=== PATIENT | male | born 1975 | race African-American/Black ===

== ENCOUNTER → 2023-05-22 09:40 | Outpatient (BNVA) | payer OTHER, SELFPAY | PROVIDERS: PCP Nurse Practitioner Family; Visit Provider Internal Medicine ==

== ENCOUNTER 2023-05-22 10:19 | Outpatient (REF) | payer OTHER, SELFPAY ==
[2023-05-22 10:42] LABS: MANUAL DIFF FLAG NO
[2023-05-22 11:31] LABS: Appearance Urine Clear; Color Urine Yellow; Glucose Urine UA Negative (Negative); Leukocyte Esterase Urine Trace (Negative); Nitrite Urine Negative (Negative); PH 5.5 (5.0-9.0); UMIC TRIGGER UACC YES; Urine Blood Negative (Negative); Urine Ketones Negative (Negative); Urine Protein Negative (Neg-Trace)
[2023-05-22 11:40] LABS: Basophils Percent Auto 0.3 % (0-2); Eosinophils Absolute Auto 0.2 X10*3/uL (0.0-0.4); Eosinophils Percent Auto 3.1 % (0-4); Hematocrit 47.6 % (42.0-52.0); Hemoglobin 16.1 g/dl (14.0-18.0); Imm Gran Abs Auto 0.02 X10*3/uL (0.00-0.03); Imm Gran Pct Auto 0.3 % (0.0-0.4); Lymphocytes Absolute Auto 1.1 X10*3/uL (1.2-4.9); Lymphocytes Percent Auto 18.7 % (20-40); Mean Corpuscular HGB Conc 33.8 g/dl (31.0-36.0); Mean Corpuscular Hemoglobin 31.3 pg (27.0-33.0); Mean Corpuscular Volume 92.4 fL (80.0-98.0); Mean Platelet Volume 10.7 fL (9.4-12.4); Monocytes Absolute Auto 0.7 X10*3/uL (0.1-1.2); Monocytes Percent Auto 12.3 % (2-11); Neutrophils Absolute Auto 3.8 x10*3/uL (2.0-8.3); Neutrophils Percent Auto 65.3 % (45-73); Platelet Count 166 X10*3/uL (160-400); Red Blood Count 5.15 X10*6/uL (4.60-5.80); Red Cell Distribution Width 12.9 % (11.0-16.0); White Blood Count 5.8 X10*3/uL (4.8-10.8)
[2023-05-22 11:47] LABS: Bacteria Urine None Seen (None Seen); Hyaline Casts Urine 0-2 /LPF (0-2); Squamous Epithelial Cell Urine 0-2 /HPF (0-2); WBC Urine 0-5 /HPF (0-5)
[2023-05-22 12:16] LABS: Estimated Average Glucose 108 mg/dL; Hemoglobin A1c % 5.4 %
[2023-05-22 13:04] LABS: Ferritin 111 ng/mL (20-250)
[2023-05-22 13:07] LABS: Alanine Aminotransferase 21 U/L (0-40); Albumin Level 3.9 g/dL (3.5-5.0); Alkaline Phosphatase 89 U/L (39-117); Anion Gap 11 (12-20); Aspartate Amino Transferase 25 U/L (5-37); Bilirubin Total 0.9 mg/dL (0.0-1.0); Blood Urea Nitrogen 11 mg/dL (9-16); Calcium 9.3 mg/dL (8.4-10.2); Carbon Dioxide 26 mmol/L (22-29); Chloride 105 mmol/L (96-108); Cholesterol 186 mg/dL; Estimated Glomerular Filt Rate > 60; Glucose Random 82 mg/dL (60-115); HDL Cholesterol 28 mg/dL; Potassium 3.8 mmol/L (3.3-5.1); Sodium 138 mmol/L (135-145); Total Protein 7.3 g/dL (6.5-8.0); Triglycerides 414 mg/dL
[2023-05-22 13:22] LABS: ~HepC Num1 0.13 S/CO (0.00-0.79); ~Hepatitis C Antibody Nonreactive (Nonreactive)
[2023-05-22 13:23] LABS: HBc Num1 0.24 S/CO (0.00-0.79); HBsAGNum1 0.43 S/CO (0.00-0.99); Hepatitis B Core Antibody Nonreactive (Nonreactive); Hepatitis B Surface Antigen Negative (Negative); ~Hepatitis B Surface Antibody NONREACTIVE (Nonreactive)
[2023-05-22 13:28] LABS: TSH reflex Free T4 1.87 uIU/mL (0.32-4.0)
== END 2023-05-22 10:20 | disposition home or self-care (01) ==
LOC: HO.LAB 10:19
PROVIDERS: Internal Medicine; PCP Nurse Practitioner Family; Visit Provider Nurse Practitioner Family
DX: Z13.0 Encounter for screening for diseases of the blood and blood-forming organs and certain disorders involving the immune mechanism (principal); Z13.220 Encounter for screening for lipoid disorders; Z13.29 Encounter for screening for other suspected endocrine disorder; Z11.59 Encounter for screening for other viral diseases; I10 Essential (primary) hypertension; N50.82 Scrotal pain; K74.60 Unspecified cirrhosis of liver; E66.9 Obesity, unspecified; Z86.010 Personal history of colon polyps
CPT/HCPCS: 36415; 80053; 80061; 81001; 82728; 83036; 84443; 85025; 86704; 86706; 86803; 87340; 99202

== ENCOUNTER 2023-07-25 10:26 | Outpatient (AMB) | payer OTHER, SELFPAY ==
[2023-07-25 10:28] VITALS: BP 130/80; PULSE 83; O2SAT 97; BMI 51.7
--- NOTE | 2023-07-25 10:28 | MHC.PC.OV ---
Vital Signs 07/25/23 10:28 Height 6 ft 2.5 in Weight 408 lb BMI 51.7 BP 130/80 Blood Pressure Location Lt brachial Position Sitting Pulse 83 Pulse Source Pulse Oximeter Pulse Oximetry (%) 97 Oxygen Delivery Method Room Air Intake Visit Reasons: Annual PE Intake Note: Patient is here today for a physical. Spudder Required: No Billing Adjudicator: Not Required per policy Accompanied by: Self / Same As Patient Allergies egg [EGG] Allergy (Unknown, Verified 07/25/23 10:29) SWELLING NSAIDS (Non-Steroidal Anti-Inflamma [NSAIDS (NON-STEROIDAL ANTI-INFLAMMA] Allergy (Unknown, Verified 07/25/23 10:29) BLOOD IN STOOL Eggs Allergy (Unknown, Uncoded 05/22/23 09:56) anaphylaxis NSAIDS Allergy (Unknown, Uncoded 05/22/23 09:56) Unknown Tobacco use date assessed: 07/25/23 Dental Screening Dental Screen Date: 07/25/23 Did you have a dental visit in the last 12 months?: No Did you have a dental problem in the last 6 months where you did not have access to dental care?: No Was dental information given to patient?: No HPI HPI Comments History of Present Illness Details 48-year-old male past medical history significant for hypertension, hypercholesteremia and obesity. Patient last seen in January presents today for physical exam. Complete blood work done in April. Reviewed hypertriglyceridemia 414, repeat fasting labs ordered. Right knee pain and swelling for years, hx right knee sugery. Patient requesting referral to orthopedic. Referral entered and right knee xray ordered. Patient requesting urology referral to discuss vasectomy. Patient requesting referral to general surgery for umbilical hernia. Referral entered. Colonscopy: at age 31; removed 7 polyps and was supposed to have 5 year follow up and never went. Patient was seen by [facility] and is going to be set for colonoscopy screening. TD given January 2023 Eye exam: Last year. PFSH Medical History Hypercholesteremia Hypertension Scrotal pain Surgical History H/O right knee surgery History of esophagogastroduodenoscopy (EGD) Hx of cholecystectomy Hx of colonoscopy Family History (Updated 07/25/23 @ 10:31 by Rita Driver) Mother No problems noted. Father Hypertension Diabetes Myocardial infarction Sister Hypertension Diabetes Brother Diabetes Hypertension Maternal Aunt Colon cancer Maternal Aunt Colon cancer Social History (Updated 07/25/23 @ 10:37 by Rita Driver) Household Members: Spouse Housing: House Alcohol intake: former Patient Tobacco Use Status: Never used Tobacco e-Cigarette/Vaping Use: Never Used Second Hand Smoke Exposure: No Substance Use Type: Marijuana service: No Current occupational status: unemployed and disabled Cognitive needs: No Hearing needs: No Vision needs: Yes Questionnaire PHQ-9 Over the last 2 weeks, how often have you been bothered by any of the following problems? 1. Little interest or pleasure in doing things: not at all 2. Feeling down, depressed, or hopeless: several days 3. Trouble falling or staying asleep, or sleeping too much: nearly every day 4. Feeling tired or having little energy: nearly every day 5. Poor appetite or overeating: not at all 6. Feeling bad about yourself - or that you are a failure or have let yourself or your family down: several days 7. Trouble concentrating on things, such as reading the newspaper or watching television: nearly every day 8. Moving or speaking so slowly that other people could have noticed. Or the opposite - being so fidgety or restless that you have been moving around a lot more than usual: nearly every day 9. Thoughts that you would be better off or of hurting yourself in some way: not at all Total score: 14 Source: Developed by Drs. Simon Yun, Iris Levy, Julio Tom and colleagues, with an educational declan from [employer]. DEANN-7 AMB Questionnaire DEANN-7 Date DEANN - 7 assessed: 07/25/23 Feeling nervous, anxious, or on edge: 2 = More than half the days Not being able to stop or control worryin = Several days Worrying too much about different things: 1 = Several days Trouble relaxin = Nearly every day Being so restless that it is hard to sit still: 2 = More than half the days Becoming easily annoyed or irritable: 3 = Nearly every day Feeling afraid as if something awful might happen: 0 = Not at all Total DEANN-7 score (0-4 normal; 5-9 mild; 10-14 moderate; 15-21 severe): 12 Source: Developed by Drs. Simon Yun, Iris Levy, Julio Tom and colleagues, with an educational declan from [employer]. Review of Systems Const Denies chills, Denies fatigue, Denies fever(s) and Denies poor appetite Eyes Denies no additional complaints ENT Reports Normal hearing present Card Denies chest pain, Denies syncope, Denies rapid heart rate and Denies dyspnea Resp Denies cough and Denies dyspnea GI Denies change in stool character, Denies constipation, Denies diarrhea, Denies nausea and Denies vomiting Denies dysuria, Denies urinary frequency and Denies urinary urgency Neuro Reports Normal hearing present, Denies confusion and Denies syncope Psych Denies confusion Endo Denies fatigue Physical exam (Primary Care) Vital Signs: Last Vital Signs Pulse 83 07/25/23 10:28 BP 130/80 07/25/23 10:28 Pulse Ox 97 07/25/23 10:28 Oxygen Delivery Method Room Air 07/25/23 10:28 BMI result Body Mass Index 51.7 Tobacco/Smoking Status: Tobacco use Status Tobacco use date assessed 07/25/23 07/25/23 10:33 Patient Tobacco Use Status Never used Tobacco 07/25/23 10:37 e-Cigarette/Vaping Use Never Used 07/25/23 10:37 PHQ-9: PHQ-9 Score PHQ-9: Total score 14 07/25/23 11:38 Const General: No confusion Orientation/consciousness: No confusion HENMT Head: Yes normocephalic and Yes atraumatic Ears: external ears normal and TM's normal bilaterally General nose exam: Normal external nose present and Normal nasal mucous membranes and turbinates present Face and sinus: Yes normal facial exam and Yes sinuses nontender Mouth: moist mucous membranes Throat: Yes tonsils normal Eyes Conjunctivae: conjunctivae normal Sclerae: sclerae normal Pupils: Equal, round and reactive pupils present and Pupils normal by confrontation EOM: EOMs intact bilaterally Direct Ophthalmoscopy: normal light reflex Neck Neck: Yes no lymphadenopathy and Yes supple Thyroid: Thyroid normal Chest Chest palpation & inspection: normal inspection of the chest Resp Effort & Inspection: normal respiratory effort Auscultation: clear to auscultation bilaterally, no crackles, no rhonchi and no wheezes Cardio Rate: regular rate Rhythm: regular rhythm Peripheral pulses: radial pulses present GI Inspection: Yes normal to inspection Palpation (GI): Soft to palpation, nontender and No hepatosplenomegaly present Auscultation: normoactive bowel sounds Skin General skin exam: no rashes or lesions noted Neuro General: No confusion Cranial nerves: Yes Equal, round and reactive pupils present and Yes Normal hearing present Cognition (Neuro): normal cognition Gait exam (Neuro): Normal gait present Motor exam (neuro): 5/5 motor strength present throughout Deep tendon reflexes (DTR's): Right brachioradialis reflex intensity grade: 2+, Left brachioradialis reflex intensity grade: 2+, Right patellar reflex intensity grade: 2+ and Left patellar reflex intensity grade: 2+ Extrem General: No edema Assessment and Plan Assessment & Plan (1) Hypertension: Code(s): I10 - Essential (primary) hypertension Plan: Blood pressure goal less than 140/90. Follow low-salt and exercise. (2) Hypercholesteremia: Code(s): E78.00 - Pure hypercholesterolemia, unspecified Plan: Fasting lipid panel ordered. (3) Obesity: Code(s): E66.9 - Obesity, unspecified Plan: Recommended diet and exercise to reduce BMI. (4) Physical exam, annual: Code(s): Z00.00 - Encounter for general adult medical examination without abnormal findings Plan: (5) H/O right knee surgery: Code(s): Z98.890 - Other specified postprocedural states (6) Right knee pain: Code(s): M25.561 - Pain in right knee Plan: Can take Tylenol as needed for the pain. Right knee x-ray ordered and referral placed to orthopedic. (7) Umbilical hernia: Code(s): K42.9 - Umbilical hernia without obstruction or gangrene Plan: Referral placed to General surgery. Plan Follow-up in 3 months. Orders: Orders XR knee RT 2V Today M25.561 - Pain in right knee, Z98.890 - Other specified postprocedural states Comprehensive Jackson. Panel Fast Today I10 - Essential (primary) hypertension Lipid Panel Today Z13.220 - Encounter for screening for lipoid disorders Referrals Orthopedics Referral M25.561 - Pain in right knee, Z98.890 - Other specified postprocedural states General Surgery Referral K42.9 - Umbilical hernia without obstruction or gangrene Urology Referral Z30.2 - Encounter for sterilization Coding Level of Care Code Est Pt Prev Care 40-64y(38522) Diagnoses Hypertension I10 Hypercholesteremia E78.00 Obesity E66.9 Physical exam, annual Z00.00 H/O right knee surgery Z98.890 Right knee pain M25.561 Umbilical hernia K42.9
== END 2023-07-25 11:05 | disposition home or self-care (01) ==
PROVIDERS: PCP Nurse Practitioner Family; Visit Provider Nurse Practitioner Family
DX: Z00.00 Encounter for general adult medical examination without abnormal findings (principal); Z68.43 Body mass index [BMI] 50.0-59.9, adult; Z98.890 Other specified postprocedural states; E66.9 Obesity, unspecified; I10 Essential (primary) hypertension; E78.00 Pure hypercholesterolemia, unspecified; M25.561 Pain in right knee; K42.9 Umbilical hernia without obstruction or gangrene
CPT/HCPCS: 99396

== ENCOUNTER 2023-07-28 09:09 | Outpatient (AMB) | payer OTHER, SELFPAY ==
--- NOTE | 2023-07-28 09:15 | A.OFFVIS_ITS ---
Intake Vital Signs 07/28/23 09:22 Height 6 ft 2.5 in Weight 412 lb BMI 52.2 BP 163/99 H Blood Pressure Location Rt radial Position Sitting Pulse 59 Intake Visit Reasons: Umbilical hernia Intake Note: Patient referred for Umbilical hernia. C/o Lt abd hernia becoming painful after dinner. States pain is 10 out o 10 when it flares. R&D Lab Technician Required: No Accompanied by: Self / Same As Patient Allergies egg [EGG] Allergy (Unknown, Verified 07/28/23 09:17) SWELLING NSAIDS (Non-Steroidal Anti-Inflamma [NSAIDS (NON-STEROIDAL ANTI-INFLAMMA] Aller gy (Unknown, Verified 07/28/23 09:17) BLOOD IN STOOL Eggs Allergy (Unknown, Uncoded 07/28/23 09:17) anaphylaxis NSAIDS Allergy (Unknown, Uncoded 07/28/23 09:17) Unknown HPI HPI Comments History of Present Illness Details Patient presents with a many year history of a symptomatic umbilical hernia. He wishes to have this repaired. Otherwise patient is doing well. He is tolerating his diet. Having normal bowel habits. He did do very stress activities but this has been limited because of unrelated lower extremity issues. Patient is status post laparoscopic cholecystectomy and his hernia may be related to that prior surgery. PFSH Medical History Hypercholesteremia Hypertension Scrotal pain Surgical History H/O right knee surgery History of esophagogastroduodenoscopy (EGD) Hx of cholecystectomy Hx of colonoscopy Family History Mother No problems noted. Father Hypertension Diabetes Myocardial infarction Sister Hypertension Diabetes Brother Diabetes Hypertension Maternal Aunt Colon cancer Maternal Aunt Colon cancer Social History Household Members: Spouse Housing: House Alcohol intake: former Patient Tobacco Use Status: Never used Tobacco e-Cigarette/Vaping Use: Never Used Second Hand Smoke Exposure: No Substance Use Type: Marijuana service: No Current occupational status: unemployed and disabled Cognitive needs: No Hearing needs: No Vision needs: Yes Physical Exam Vital Signs: Last Vital Signs Pulse 59 07/28/23 09:22 BP 163/99 H 07/28/23 09:22 BMI result Body Mass Index 52.2 Chest Other: Chest sounds bilaterally, HS 1 in 2 GI Other: Very corpulent abdomen. Laparoscopic gallbladder scars. Umbilical her/incisional hernia approximately 3 cm in size. Irreducible. Assessment & Plan Assessment & Plan (1) Umbilical hernia: Code(s): K42.9 - Umbilical hernia without obstruction or gangrene Plan Risks, benefits, alternatives open umbilical hernia repair with mesh were reviewed with the patient and included but not limited to bleeding, infection, recurrence, numbness, pain, scarring, bowel injury and the patient wished to proceed. All questions were answered. Arrangements will be made for this. Coding Level of Care Code New Pt Level 5 (21955) Diagnoses Umbilical hernia K42.9
[2023-07-28 09:22] VITALS: BP 163/99; PULSE 59; BMI 52.2
== END 2023-07-28 09:27 | disposition home or self-care (01) ==
PROVIDERS: PCP Nurse Practitioner Family; Referring Provider Nurse Practitioner Family; Visit Provider Surgery
DX: K42.9 Umbilical hernia without obstruction or gangrene (principal)
CPT/HCPCS: 99204

== ENCOUNTER → 2023-07-28 09:09 | Outpatient (BNVA) | payer OTHER, SELFPAY | PROVIDERS: PCP Nurse Practitioner Family; Referring Provider Nurse Practitioner Family; Visit Provider Surgery ==

== ENCOUNTER 2023-08-10 12:31 | Outpatient (AMB) | payer OTHER, SELFPAY ==
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
== END 2023-08-10 13:44 | disposition home or self-care (01) ==
PROVIDERS: PCP Nurse Practitioner Family; Visit Provider Orthopaedic Surgery
DX: M25.561 Pain in right knee (principal)
CPT/HCPCS: 20610; 99204

== ENCOUNTER 2023-08-10 17:20 | Outpatient (REF) | payer OTHER, SELFPAY ==
--- NOTE | ~2023-08-10 | XR_ITS ---
EXAMINATION: XR KNEE, RIGHT CLINICAL INFORMATION: Pain in right knee COMPARISON: None available. TECHNIQUE: Three views of the right knee. FINDINGS: The bones are diffusely demineralized. Joint effusion present. Moderate degenerative changes with joint space narrowing and hypertrophic change in the lateral and patellofemoral compartments. Status post surgical fixation with lateral plate and multiple screws along the proximal aspect of the tibia. Hardware appears intact. Sclerotic focus projects along the medial lateral aspect of the proximal tibia. XR/XR knee RT 3V IMPRESSION: Joint effusion present. Moderate degenerative changes in the lateral and patellofemoral compartments. Status post surgical fixation with lateral plate and multiple screws along the proximal aspect of the tibia. Hardware appears intact. Sclerotic focus projects along the medial lateral aspect of the proximal tibia.
== END 2023-08-10 17:21 | disposition home or self-care (01) ==
LOC: HO.HOSX 17:20
PROVIDERS: Visit Provider Orthopaedic Surgery
DX: M25.561 Pain in right knee (principal)
CPT/HCPCS: 20610; 73562; J3301

== ENCOUNTER 2023-08-24 06:01 | Day surgery (SDC) | payer OTHER, SELFPAY ==
[2023-08-22 07:19] VITALS: BMI 52.4
--- NOTE | 2023-08-23 09:05 | MHC.SHP ---
Pre-Procedural Eval Section A Date of Service: 08/23/23 The patient is an INPATIENT: No Changes since office visit: No Cold of Flu in the past 2 weeks, No New Medical Problems, No Changes in Medication and No Patient answered all questions The History & Physical has been completed within 30 days and I have reviewed it.: Yes Section B Chief Complaint: Umbilical hernia without obstruction or gangrene Allergies: Allergies Allergy/AdvReac Type Severity Reaction Status Date / Time egg [EGG] Allergy Unknown SWELLING Verified 08/10/23 13:05 NSAIDS (Non-Steroidal Allergy Unknown BLOOD IN Verified 08/10/23 13:05 Anti-Inflamma STOOL [NSAIDS (NON-STEROIDAL ANTI-INFLAMMA] Eggs Allergy Unknown anaphylaxis Uncoded 08/10/23 13:05 Plan I have reviewed the history and physical and performed a pertinent physical examination on my patient. No changes have occurred unless specified. Time Spent With Patient Time: Total time managing care of this patient today ____ minutes.
[2023-08-24] VITALS (10 sets, daily range): BP systolic 115–157; BP diastolic 62–100; PULSE 54–72; RESP 13–18; TEMP 36.1–36.8; O2SAT 92–98
[2023-08-24] MEDS: Lactated Ringers 1,000 ML 100 ML IVCONT (06:44)
--- NOTE | 2023-08-24 07:20 | HO.ANESPROP2 ---
Documented by User: Patricia Juan NP 08/23/23 08:57 HPI - Anesthesia Eval Consult details Narrative: 48yo M for Open Umbilical Hernia w/mesh PMFSH Active Problems Active Problems: All Active Problems (Updated 07/25/23 @ 10:54 by JAYLEN Moise) Umbilical hernia (Acute) Right knee pain (Acute) Obesity (Acute) Personal history of colonic polyps (Acute) Encounter for hepatitis C screening test for low risk patient (Acute) Scrotal pain (Acute) H/O right knee surgery (Acute) Hx of cholecystectomy (Acute) Hypercholesteremia (Acute) Hypertension (Acute) Past Medical History Medical History (Updated 08/24/23 @ 06:22 by Mile Cano RN) Marijuana smoker Scrotal pain Hypercholesteremia Hypertension Family History Family History Mother No problems noted. Father Hypertension Diabetes Myocardial infarction Sister Hypertension Diabetes Brother Diabetes Hypertension Maternal Aunt Colon cancer Maternal Aunt Colon cancer Surgical History Surgical History History of esophagogastroduodenoscopy (EGD) Hx of colonoscopy H/O right knee surgery Hx of cholecystectomy Social History Social History Household Members: Spouse Housing: House Alcohol intake: former Patient Tobacco Use Status: Never used Tobacco e-Cigarette/Vaping Use: Never Used Second Hand Smoke Exposure: No Substance Use Type: Marijuana Are you DNR?: No Advance Directives: No Advance Directives Information Provided: Yes Recently lost weight without trying: No Nutrition Risks: No Nutritional Risk service: No Current occupational status: unemployed and disabled Cognitive needs: No Hearing needs: No Vision needs: Yes Meds Allergies Allergy/AdvReac Type Severity Reaction Status Date / Time egg [EGG] Allergy Unknown SWELLING Verified 08/10/23 13:05 NSAIDS (Non-Steroidal Allergy Unknown BLOOD IN Verified 08/10/23 13:05 Anti-Inflamma STOOL [NSAIDS (NON-STEROIDAL ANTI-INFLAMMA] Eggs Allergy Unknown anaphylaxis Uncoded 08/10/23 13:05 Exam Exam Date and Time: August 23, 2023 0856 Height,Weight and Vital Signs: Height 6 ft 2 in Weight 185.066 kg Pertinent Lab Results Pertinent Lab Results: Laboratory Tests 05/22/23 10:39 WBC 5.8 Hgb 16.1 Hct 47.6 Plt Count 166 Sodium 138 Potassium 3.8 Chloride 105 Carbon Dioxide 26 BUN 11 Creatinine 0.86 Assessment and Plan Assessment Anesthesia Assessment: Chart Reviewed Documented by User: Karlene Manjarrez, 08/24/23 08:42 PMFSH Past Medical History Medical History (Updated 08/24/23 @ 06:22 by Mile Cano RN) Marijuana smoker Scrotal pain Hypercholesteremia Hypertension Family History Family History Mother No problems noted. Father Hypertension Diabetes Myocardial infarction Sister Hypertension Diabetes Brother Diabetes Hypertension Maternal Aunt Colon cancer Maternal Aunt Colon cancer Family history of problems with anesthesia: No Surgical History Surgical History History of esophagogastroduodenoscopy (EGD) Hx of colonoscopy H/O right knee surgery Hx of cholecystectomy History of Problems with Anesthesia: No Social History Social History Household Members: Spouse Housing: House Alcohol intake: former Patient Tobacco Use Status: Never used Tobacco e-Cigarette/Vaping Use: Never Used Second Hand Smoke Exposure: No Substance Use Type: Marijuana Are you DNR?: No Advance Directives: No Advance Directives Information Provided: Yes Recently lost weight without trying: No Nutrition Risks: No Nutritional Risk service: No Current occupational status: unemployed and disabled Cognitive needs: No Hearing needs: No Vision needs: Yes Meds Allergies Allergy/AdvReac Type Severity Reaction Status Date / Time egg [EGG] Allergy Unknown SWELLING Verified 08/10/23 13:05 NSAIDS (Non-Steroidal Allergy Unknown BLOOD IN Verified 08/10/23 13:05 Anti-Inflamma STOOL [NSAIDS (NON-STEROIDAL ANTI-INFLAMMA] Eggs Allergy Unknown anaphylaxis Uncoded 08/10/23 13:05 Exam Exam Date and Time: August 24, 2023 0715 Height,Weight and Vital Signs: Height 6 ft 2 in Weight 185.066 kg Vital Signs Temperature 98.3 F 08/24/23 06:06 Pulse Rate 56 08/24/23 06:06 Respiratory Rate 18 08/24/23 06:06 Blood Pressure 144/100 H 08/24/23 06:06 Pulse Oximetry 98 08/24/23 06:06 Oxygen Delivery Method Room Air 08/24/23 06:06 Temperature 98.3 F 08/24/23 06:06 Pulse Rate 56 08/24/23 06:06 Respiratory Rate 18 08/24/23 06:06 Blood Pressure 145/86 H 08/24/23 06:24 Pulse Oximetry 98 08/24/23 06:06 Oxygen Delivery Method Room Air 08/24/23 06:06 Airway Mallampati Class: II TM Dist: >3cm Neck ROM: Full Loose/Missing/Broken Teeth: Yes (broken front teeth) Heart: S1S2 Lungs: CTAB Assessment and Plan Assessment Anesthesia Assessment: Anesthesia Plan Discussed and Chart Reviewed Final Anesthetic Review Family History of Problems with Anesthesia: No History of Problems with Anesthesia: No NPO: Yes ASA Class: III Final Preanesthetic Review: No Changes in Pt Med Stat, Meds/Allgs Chart Reviewed, Consent Obtained/Reviewed and Anes Risks/Benef Reviewed Patient Risk: Intermediate Procedure Risk: Low Anesthetic Plan Anesthetic Plan: GA and Agree w/ Assess. and Plan Disposition: Standard PACU
--- NOTE | 2023-08-24 08:29 | W.PM.OPN ---
Operative Note Operative Note Date of Service: 08/24/23 Narrative: Preoperative diagnosis: [] Large incarcerated umbilical/incisional hernia Postop diagnosis: [] Same Procedure [] open repair incarcerated umbilical/incisional hernia with Bard mesh Surgeon: [] [facility] Prosthetics Technician: [] Hossein Type of Anesthesia: [] General Indication for surgery: [] Large incarcerated umbilical/incisional hernia with defect measuring approximately 4 cm with very large hernia sac with incarcerated omental contents. Very corpulent abdomen Findings: [] Patient brought to the operating room, placed on operative table in a supine position, after adequate level of general anesthesia was induced, the patient's abdomen was prepped and draped in usual sterile fashion. Using an infraumbilical incision from a prior scar from previous surgery over this site, this carried down through skin, subcutaneous tissue, where a massive hernia sac was dissected away from the umbilicus and dissected down to the fascia. Sac was opened were incarcerated omental contents were amputated using Bovie along with the hernia sac. Specimen sent to pathology. Fascia margins were circumferentially cleared and a Bard mesh was placed in this defect. The superficial layer of the mesh was circumferentially sutured to the surrounding fascia using interrupted 0 Ethibond suture. At completion the procedure, mesh was in good position with no tension and no gaps. The wound Was irrigated, secured hemostasis, and closed in the following manner; posterior aspect of the umbilicus was tacked to the wound floor using interrupted 3-0 Vicryl suture. Skin was closed using interrupted inverted dermal 3-0 Vicryl sutures followed by Steri-Strips and sterile dressings. Wound was infiltrated 0.5% Marcaine at completion. Sponge, needle, and instrument counts reported correct. Patient tolerated the procedure well and emerged anesthesia in stable condition. EBL minimal
== END 2023-08-24 11:19 | disposition home or self-care (01) ==
PROVIDERS: PCP Nurse Practitioner Family; Visit Provider Surgery
PROC: (CPT 49594; principal; 2023-08-24 07:30)
DX: K42.0 Umbilical hernia with obstruction, without gangrene (principal); I10 Essential (primary) hypertension; E78.00 Pure hypercholesterolemia, unspecified; N50.82 Scrotal pain; Z88.8 Allergy status to other drugs, medicaments and biological substances; Z90.49 Acquired absence of other specified parts of digestive tract; F12.90 Cannabis use, unspecified, uncomplicated
CPT/HCPCS: 49594; 88302; C1781; J0690; J1100; J1170; J2250; J2405; J3010

== ENCOUNTER → 2023-08-24 06:01 | Outpatient (BNV) | payer OTHER, SELFPAY | PROVIDERS: PCP Nurse Practitioner Family; Visit Provider Surgery | DX: K42.9 Umbilical hernia without obstruction or gangrene (principal) | CPT/HCPCS: 49594 ==

== ENCOUNTER 2023-09-11 10:04 | Outpatient (AMB) | payer OTHER, SELFPAY ==
[2023-09-11 10:09] VITALS: BP 133/93; PULSE 65
--- NOTE | 2023-09-11 10:09 | MHC.OFFVIS ---
Intake Vital Signs 09/11/23 10:09 Weight 394 lb BP 133/93 H Blood Pressure Location Rt brachial Position Sitting Pulse 65 Intake Visit Reasons: S/P open umbilical hernia w/mesh Intake Note: Patient here s/p open umbilical hernia w/mesh. Reports healing well. Never needed to take rx pain meds. Ups Driver Required: No Accompanied by: Self / Same As Patient Allergies egg [EGG] Allergy (Unknown, Verified 09/11/23 10:10) SWELLING NSAIDS (Non-Steroidal Anti-Inflamma [NSAIDS (NON-STEROIDAL ANTI-INFLAMMA] Allergy (Unknown, Verified 09/11/23 10:10) BLOOD IN STOOL Eggs Allergy (Unknown, Uncoded 09/11/23 10:10) anaphylaxis HPI HPI Comments History of Present Illness Details Patient presents for follow-up. He has minimal incisional discomfort. He has time diet. Having normal bowel habits. He is increasing his activity level. [facility] [place] Medical History Marijuana smoker Scrotal pain Hypercholesteremia Hypertension Surgical History History of umbilical hernia repair History of esophagogastroduodenoscopy (EGD) Hx of colonoscopy H/O right knee surgery Hx of cholecystectomy (08/24/23) Family History Mother No problems noted. Father Hypertension Diabetes Myocardial infarction Sister Hypertension Diabetes Brother Diabetes Hypertension Maternal Aunt Colon cancer Maternal Aunt Colon cancer Social History Household Members: Spouse Housing: House Alcohol intake: former Patient Tobacco Use Status: Never used Tobacco e-Cigarette/Vaping Use: Never Used Second Hand Smoke Exposure: No Substance Use Type: Marijuana service: No Current occupational status: unemployed and disabled Cognitive needs: No Hearing needs: No Vision needs: Yes Physical Exam Vital Signs: Last Vital Signs Pulse 65 09/11/23 10:09 BP 133/93 H 09/11/23 10:09 GI Other: Abdomen soft. Wound clean dry and intact. Assessment & Plan Assessment & Plan (1) Umbilical hernia: Code(s): K42.9 - Umbilical hernia without obstruction or gangrene (2) Personal history of colonic polyps: Code(s): Z86.010 - Personal history of colonic polyps Plan From my perspective, patient has been given local instructions, should avoid stress activities next 4-5 weeks, follow up p.r.n.. Incidentally, patient is due for colonoscopy, and arrangements will be made with GI for this. Coding Level of Care Code Global (18066) Diagnoses Umbilical hernia K42.9 Personal history of colonic polyps Z86.010
== END 2023-09-11 10:31 | disposition home or self-care (01) ==
PROVIDERS: PCP Nurse Practitioner Family; Visit Provider Surgery
DX: K42.9 Umbilical hernia without obstruction or gangrene (principal); Z86.010 Personal history of colon polyps
CPT/HCPCS: 99212

== ENCOUNTER → 2023-09-11 10:04 | Outpatient (BNVA) | payer OTHER, SELFPAY | PROVIDERS: PCP Nurse Practitioner Family; Visit Provider Surgery | DX: K42.9 Umbilical hernia without obstruction or gangrene (principal); Z86.010 Personal history of colon polyps | CPT/HCPCS: 99212 ==

== ENCOUNTER 2023-09-26 08:19 | Outpatient (AMB) | payer OTHER, SELFPAY ==
--- NOTE | 2023-09-26 08:23 | A.OFFVIS_ITS ---
Intake Vital Signs 09/26/23 08:25 Height 6 ft 3 in Weight 398 lb BMI 49.7 BP 152/90 H Blood Pressure Location Lt brachial Position Sitting Pulse 58 Intake Visit Reasons: Colonoscopy Screening Intake Note: Patient 2nd pre colonoscopy screening. Patient cc: abdominal bloating, and between diarrhea and constipation. Denies any other GI issues. Investor Relations Associate Required: No Accompanied by: Self / Same As Patient Allergies egg [EGG] Allergy (Unknown, Verified 09/26/23 08:22) SWELLING NSAIDS (Non-Steroidal Anti-Inflamma [NSAIDS (NON-STEROIDAL ANTI-INFLAMMA] Allergy (Unknown, Verified 09/26/23 08:22) BLOOD IN STOOL Eggs Allergy (Unknown, Uncoded 09/11/23 10:10) anaphylaxis Medication List - Last Reconciled 09/26/23 by Janice Gallegos PA-C bisacodyl (Dulcolax (bisacodyl)) 20 mg (4 x 5 mg) PO ONCE 1 day polyethylene glycol 3350 (Miralax) 238 grams PO ONCE PRN 1 day HPI HPI Comments History of Present Illness Details A 48 y/o male personal history of colon polyps referred for screening screening colonoscopy 1 colo@ age 31- 7-polyps He has no GI complaints He has pretty much always had a alternating stool pattern- He has made multiple dietary modifications Appetite is good He has no respiratory or cardiac issues Does not smoke or drink He takes no medications He has no nausea, vomiting, hematemesis, abdominal pain, hematochezia fever or chills PFSH Medical History (Updated 09/26/23 @ 08:38 by Janice Gallegos PA-C) Marijuana smoker Scrotal pain Hypercholesteremia Hypertension Surgical History History of umbilical hernia repair History of esophagogastroduodenoscopy (EGD) Hx of colonoscopy H/O right knee surgery Hx of cholecystectomy (08/24/23) Family History Mother No problems noted. Father Hypertension Diabetes Myocardial infarction Sister Hypertension Diabetes Brother Diabetes Hypertension Maternal Aunt Colon cancer Maternal Aunt Colon cancer Social History Household Members: Spouse Housing: House Alcohol intake: former Patient Tobacco Use Status: Never used Tobacco e-Cigarette/Vaping Use: Never Used Second Hand Smoke Exposure: No Substance Use Type: Marijuana service: No Current occupational status: unemployed and disabled Cognitive needs: No Hearing needs: No Vision needs: Yes Review of Systems Const Details: All systems reviewed negative All systems reviewed & are unremarkable except as noted in HPI and below Card Denies chest pain and Denies dyspnea Resp Denies dyspnea GI Denies abdominal pain and Denies hematochezia Physical Exam Const General: cooperative, healthy appearing, comfortable and no acute distress Nutritional Appearance: overweight Orientation/consciousness: patient oriented x3 Limitations: no limitations Eyes Sclerae: sclerae normal Resp Effort & Inspection: normal respiratory effort and able to speak in complete sentences Auscultation: clear to auscultation bilaterally, no rales, no rhonchi and no wheezes Cardio Rate: regular rate Rhythm: regular rhythm Heart sounds: S1 normal heart sound present and S2 normal heart sound present GI Inspection: Yes normal to inspection Palpation (GI): Soft to palpation and nontender Auscultation: normal bowel sounds Skin General skin exam: no rashes or lesions noted Neuro General: patient oriented x3 Extrem General: Yes full ROM Psych Appearance: grossly normal and well kempt Mental Status: mental status grossly normal Speech and movement: Normal speech and movement present and Clear speech present Affect: normal affect Attitude: cooperative Thought process: Normal thought process present Thought content: Normal thought content present Assessment & Plan Assessment & Plan (1) Hx of colonoscopy: Comment: Reportedly 7 polyps at age 31 he had never had follow-up colonoscopy Code(s): Z98.890 - Other specified postprocedural states (2) History of adenomatous polyp of colon: Code(s): Z86.010 - Personal history of colonic polyps Plan Polyp surveillance colonoscopy MiraLax Gatorade prep Bariatric bed Orders: Orders Colonoscopy - GI Use Only Today Z86.010 - Personal history of colonic polyps, Z98.890 - Other specified postprocedural states Medications: New bisacodyl (Dulcolax (bisacodyl)) Day before procedure, prep day Take 4 tablets by mouth upon awakening followed by large glass of water 20 mg (4 x 5 mg) PO ONCE 4 tabs 0RF colonoscopy prep 1 day Z12.11 - Encounter for screening for malignant neoplasm of colon polyethylene glycol 3350 (Miralax) Take as directed by mouth the day before your procedure. 238 grams PO ONCE PRN 238 grams 0RF laxative effect 1 day Patient Instructions: Polyp surveillance colonoscopy MiraLax Gatorade Need for escort Coding Level of Care Code New Pt Level 3 (89247) Diagnoses Hx of colonoscopy Z98.890 History of adenomatous polyp of colon Z86.010 Time Spent (min) 25
[2023-09-26 08:25] VITALS: BP 152/90; PULSE 58; BMI 49.7
== END 2023-09-26 09:26 | disposition home or self-care (01) ==
PROVIDERS: PCP Nurse Practitioner Family; Visit Provider Physician Assistant
DX: Z98.890 Other specified postprocedural states (principal); Z86.010 Personal history of colon polyps
CPT/HCPCS: 99203

== ENCOUNTER → 2023-09-26 08:19 | Outpatient (BNVA) | payer OTHER, SELFPAY | PROVIDERS: PCP Nurse Practitioner Family; Visit Provider Physician Assistant | DX: Z98.890 Other specified postprocedural states (principal); Z86.010 Personal history of colon polyps | CPT/HCPCS: 99202 ==

== ENCOUNTER 2025-06-03 14:56 | Outpatient (AMB) | payer OTHER, SELFPAY ==
--- NOTE | 2025-06-03 14:59 | MHC.PC.OV ---
Vital Signs 06/03/25 15:01 Height 6 ft 2.5 in Weight 445 lb 8.867 oz BMI 56.4 BP 142/94 H Blood Pressure Location Lt brachial Position Sitting Pulse 86 Pulse Source Pulse Oximeter Temp 97.3 F Temp Source Temporal Artery Scan Pulse Oximetry (%) 96 Oxygen Delivery Method Room Air Intake Visit Reasons: annual exam/ rt leg pain Manager Requirements Required: No Accompanied by: Self / Same As Patient Allergies egg (EGG) Allergy (Unknown, Verified 06/03/25 15:08) SWELLING NSAIDS (Non-Steroidal Anti-Inflamma (NSAIDS (NON-STEROIDAL ANTI-INFLAMMA) Allergy (Unknown, Verified 06/03/25 15:08) BLOOD IN STOOL Eggs Allergy (Unknown, Uncoded 06/03/25 15:08) anaphylaxis Medication List - Last Reconciled 06/03/25 by Marlon Sandhu PA-C bisacodyl (Dulcolax (bisacodyl)) 20 mg (4 x 5 mg) PO ONCE 1 day polyethylene glycol 3350 (Miralax) 238 grams PO ONCE PRN 1 day Tobacco use date assessed: 06/03/25 Dental Screening Dental Screen Date: 06/03/25 Did you have a dental visit in the last 12 months?: No Did you have a dental problem in the last 6 months where you did not have access to dental care?: No Was dental information given to patient?: Yes HPI annual exam/ rt leg pain HPI Details Patient is a 49-year-old male here today for an annual physical. This is the 1st time I am meeting this 49-year-old male with a past medical history significant for class 3 obesity, hypertension and hyperlipidemia.. Lower extremity swelling: The patient reports experiencing swelling in his leg, particularly in the evenings, which has been persistent for several months. He has a history of bolts and screws in the leg and received a cortisone injection previously, which was followed by increased swelling. The swelling has been significant enough to prevent him from wearing his work shoes, necessitating the use of Crocs. The patient has a family history of thrombosis on both maternal and paternal sides, with his father having experienced severe complications leading to amputation. He denies taking any regular medications but occasionally uses [id number] analgesics, which exacerbate his hernia symptoms. The patient reports a history of obstructive sleep apnea, previously confirmed by a sleep study, and expresses interest in weight management interventions. He has ceased smoking and alcohol consumption, which he associates with weight gain. The patient has a history of hernia repair with mesh placement and reports variable bowel habits, which he manages with dietary modifications. .. [facility] Medical History (Updated 06/04/25 @ 07:28 by Marlon Sandhu PA-C) Marijuana smoker Scrotal pain Hypercholesteremia Hypertension Surgical History History of umbilical hernia repair History of esophagogastroduodenoscopy (EGD) Hx of colonoscopy H/O right knee surgery Hx of cholecystectomy (08/24/23) Family History Mother No problems noted. Father Hypertension Diabetes Myocardial infarction Sister Hypertension Diabetes Brother Diabetes Hypertension Maternal Aunt Colon cancer Maternal Aunt Colon cancer Social History Household Members: Spouse Housing: House Alcohol intake: former Patient Tobacco Use Status: Never used Tobacco e-Cigarette/Vaping Use: Never Used Second Hand Smoke Exposure: No Substance Use Type: Marijuana service: No Current occupational status: unemployed and disabled Cognitive needs: No Hearing needs: No Vision needs: Yes Questionnaire PHQ-9 Over the last 2 weeks, how often have you been bothered by any of the following problems? 1. Little interest or pleasure in doing things: not at all 2. Feeling down, depressed, or hopeless: not at all 3. Trouble falling or staying asleep, or sleeping too much: not at all 4. Feeling tired or having little energy: not at all 5. Poor appetite or overeating: not at all 6. Feeling bad about yourself - or that you are a failure or have let yourself or your family down: not at all 7. Trouble concentrating on things, such as reading the newspaper or watching television: not at all 8. Moving or speaking so slowly that other people could have noticed. Or the opposite - being so fidgety or restless that you have been moving around a lot more than usual: not at all 9. Thoughts that you would be better off or of hurting yourself in some way: not at all Total score: 0 Depression Screening Interpretation: Negative Depression Screening Done: Yes 42048 - PHQ-9 Billing: Yes Source: Developed by Drs. Simon Yun, Iris Levy, Julio Tom and colleagues, with an educational declan from [employer]. Thrive Questionnaire Date Thrive assessed: 06/03/25 I am a: Patient What is your living situation today?: I have a steady place to live Within the past 12 months, did the food you bought not last and you didn't have the money to get more?: Never true Within the past 12 months, did you worry whether your food would run out before you got money to buy more?: Never true Do you have trouble paying for medicines?: No Do you have trouble getting transportation to medical appointments?: No Do you have trouble paying your heating and electricity bill?: No Do you have trouble taking care of your child, family member or friend?: No Do you have trouble with day-to-day activities such as bathing, preparing meals, shopping, managing finances, etc.?: No Are you currently unemployed and looking for a job?: No Are you interested in more education?: No Please select the resources that you would like help with: None Currently or been in a relationship where the following occur: No concerns reported THRIVE Score: 0 AUDIT C Alcohol Use Questionnaire (AUDIT-C) 1. How often do you have a drink containing alcohol?: Never 3. How often do you have six or more drinks on one occasion?: Never Total Score: 0 DEANN-7 AMB Questionnaire DEANN-7 Date DEANN - 7 assessed: 06/03/25 Feeling nervous, anxious, or on edge: 0 = Not at all Not being able to stop or control worryin = Not at all Worrying too much about different things: 0 = Not at all Trouble relaxin = Not at all Being so restless that it is hard to sit still: 0 = Not at all Becoming easily annoyed or irritable: 0 = Not at all Feeling afraid as if something awful might happen: 0 = Not at all Total DEANN-7 score (0-4 normal; 5-9 mild; 10-14 moderate; 15-21 severe): 0 Source: Developed by Iris JohnsonW. Cam, Julio Tom and colleagues, with an educational declan from [employer]. DEANN-7 Assessment Billing DEANN-7 Assessment Tool: DEANN-7 Assessment 45960 Review of Systems Const Denies body aches, Denies chills, Denies excessive sweating, Denies fatigue, Denies fever(s) and Denies headache(s) Eyes Denies blurry vision ENT Denies dysphagia, Denies vertigo, Denies dizziness, Denies headache(s), Denies hearing loss and Denies tinnitus Card Denies chest pain, Denies chest pain with activity, Denies syncope, Denies irregular heart rhythm and Denies dyspnea Resp Denies chest congestion, Denies cough, Denies hemoptysis, Denies dyspnea and Denies wheezing GI Denies abdominal pain, Denies melena, Denies hematochezia, Denies coffee ground emesis, Denies dysphagia, Denies diarrhea, Denies nausea and Denies vomiting Denies difficulty urinating, Denies dysuria, Denies urinary frequency, Denies urinary hesitancy and Denies urinary urgency Musc Denies arthralgias, Denies limited range of motion, Denies muscle cramps and Denies muscle weakness Skin/Breast Denies rash and Denies skin ulcer Neuro Denies Abnormal speech present, Denies confusion, Denies vertigo, Denies dizziness, Denies syncope, Denies headache(s), Denies memory loss and Denies seizure-like activity Psych Denies anxiety, Denies confusion, Denies depression, Denies memory loss, Denies panic attacks and Denies paranoia Endo Denies excessive sweating, Denies fatigue, Denies flushing, Denies polydipsia and Denies polyuria Aller/Immun Denies wheezing Physical exam (Primary Care) Vital Signs: Last Vital Signs Temp 97.3 F 06/03/25 15:01 Pulse 86 06/03/25 15:01 BP 142/94 H 06/03/25 15:01 Pulse Ox 96 06/03/25 15:01 Oxygen Delivery Method Room Air 06/03/25 15:01 BMI result Body Mass Index 56.4 BMI Assessment/Plan discussion: High BMI High, discussed plan: lifestyle, weight reduction, dietary and physical activity Tobacco/Smoking Status: Tobacco use Status Tobacco use date assessed 06/03/25 06/03/25 15:01 Patient Tobacco Use Status Never used Tobacco 06/03/25 15:01 e-Cigarette/Vaping Use Never Used 06/03/25 15:01 PHQ-9: PHQ-9 Score PHQ-9: Total score 0 06/03/25 15:13 Depression Screening Interpretation: Negative Thrive Assessment: Date of Thrive Assessment Date Thrive assessed 06/03/25 06/03/25 15:01 Currently or been in a relationship where the following occur: No concerns reported Const Other: Morbidly obese General: cooperative, comfortable, no acute distress, alert and awake; No confusion Orientation/consciousness: oriented to person, oriented to place, patient oriented x3 and No confusion HENMT Head: Yes normocephalic Ears: external ears normal and TM's normal bilaterally Face and sinus: No sinus tenderness Mouth: Normal oral and palatal mucosa present and tongue normal Teeth and gingiva: dentition normal and gingiva normal Throat: Yes posterior oropharynx normal, Yes tonsils normal and Yes uvula midline Eyes Conjunctivae: conjunctivae normal Sclerae: sclerae normal Pupils: Equal, round and reactive pupils present EOM: EOMs intact bilaterally Direct Ophthalmoscopy: No no photophobia Neck Neck: Yes no lymphadenopathy, No tender and Yes no JVD Thyroid: Thyroid normal Carotids: no bruits Chest Chest palpation & inspection: no tenderness Resp Effort & Inspection: normal respiratory effort, no audible wheezes, not labored and no stridor Auscultation: no crackles, no rales, no rhonchi and no wheezes Cardio Jugular venous distension: no JVD Rate: regular rate, not bradycardic and not tachycardic Rhythm: regular rhythm Bruits: no carotid bruits Peripheral pulses: Peripheral pulses 2+ throughout GI Inspection: Yes normal to inspection, No abdominal wall ecchymosis and No visible herniation Palpation (GI): Soft to palpation, nontender, no guarding, not rigid and No hepatosplenomegaly present Auscultation: normoactive bowel sounds General: Yes no CVA tenderness Back/Spine/Pelvis Back: no CVA tenderness and No back tenderness Cervical Spine: cervical ROM normal Thoracic/Lumbar Spine: thoracic and lumbar spine normal to inspection, straight leg raise negative bilaterally, No thoraco-lumbar ROM limited and No lumbar spinal tenderness Skin Lesions: no lesions Rashes: no rashes Wounds: no wounds Neuro General: oriented to person, oriented to place, patient oriented x3, CN's II-XI intact bilaterally and No confusion Cranial nerves: Yes Equal, round and reactive pupils present and Yes Normal accommodation reflex present Cognition (Neuro): normal cognition Speech: No Abnormal speech present Gait exam (Neuro): Normal gait present Motor exam (neuro): 5/5 motor strength present throughout Extrem Other: RIGHT LOWER EXTREMITY LARGER IN DIAMETER COMPARED TO LEFT LOWER EXTREMITY, NOTED HYPERPIGMENTED SKIN OVER THE MEDIAL LOWER ASPECT OF THE RIGHT LEG. Right upper extremity: full ROM; no cyanosis Left upper extremity: full ROM; no cyanosis Right lower extremity: no edema Left lower extremity: no edema Psych Appearance: grossly normal Mental Status: mental status grossly normal Affect: normal affect Attitude: cooperative Thought process: Normal thought process present Coding Level of Care Code Est Pt Prev Care 40-64y(05333) Diagnoses Annual physical exam Z00.00 Right leg swelling M79.89 Class 3 obesity E66.813 KAMILLA (obstructive sleep apnea) G47.33 Primary hypertension I10 Hypertension type: primary hypertension Hypercholesteremia E78.00 Additional Codes DEANN-7 Assessment Billing - DEANN-7 Assessment Tool: DEANN-7 Assessment 47532 ([id number]) PHQ-9 - 94139 - PHQ-9 Billing: Yes ([id number]) Assessment & Plan Assessment & Plan (1) Annual physical exam: Code(s): Z00.00 - Encounter for general adult medical examination without abnormal findings Category: Medical Plan: As per HPI (2) Right leg swelling: Code(s): M79.89 - Other specified soft tissue disorders Category: Medical Plan: Patient with chronic right lower extremity swelling, will send for ultrasound to evaluate for DVT as he does have a family history of blood clots. Otherwise will supply patient with a paper Rx for compression sock to use on his right lower extremity. Will supply patient with a few weeks of Lasix to help dry out fluid. Will consider vascular evaluation for lymphedema in the right lower extremity. (3) Class 3 obesity: Code(s): E66.813 - Obesity, class 3 Category: Medical Plan: Patient has had a hard time losing weight. He reports since he has stopped drinking alcohol he has gained weight. He works a sedentary job as a cook. He is willing to try injectable medication GLP 1 to help him lose weight. (4) KAMILLA (obstructive sleep apnea): Code(s): G47.33 - Obstructive sleep apnea (adult) (pediatric) Category: Medical Plan: Patient does report a personal history of obstructive sleep apnea and was using a CPAP machine for a short amount of time. He does admit to daytime somnolence, increase fatigue and reports of apneic episodes at night. He is willing to get obstructive sleep apnea. (5) Hypertension: Code(s): I10 - Essential (primary) hypertension Category: Medical Qualifiers: Hypertension type: primary hypertension Qualified Code(s): I10 - Essential (primary) hypertension Plan: Patient's blood pressure elevated today in office. He would like to work on lifestyle and dietary modifications before starting blood pressure medications. Goal blood pressure to be below 140/90 (6) Hypercholesteremia: Code(s): E78.00 - Pure hypercholesterolemia, unspecified Category: Medical Plan: Patient's most recent lipid panel done in 2022 showing elevated triglycerides at 414. Will recheck fasting lipid panel and consider starting statin therapy Orders: Orders US venous duplex LE RT 06/03/25 M79.89 - Other specified soft tissue disorders Lipid Panel 06/03/25 E78.00 - Pure hypercholesterolemia, unspecified Microalbumin, Random (w Creat) 06/03/25 I10 - Essential (primary) hypertension Comprehensive [place]. Panel Fast 06/03/25 I10 - Essential (primary) hypertension Complete Blood Count no Diff 06/03/25 I10 - Essential (primary) hypertension Prostate Specific Antigen Scr 06/03/25 E78.00 - Pure hypercholesterolemia, unspecified, Z12.5 - Encounter for screening for malignant neoplasm of prostate RT home sleep study 06/03/25 G47.33 - Obstructive sleep apnea (adult) (pediatric) Referrals Bariatric Surgery Referral E66.813 - Obesity, class 3 Medications: New furosemide 20 mg PO DAILY 14 tabs 0RF 14 days M. - Other specified soft tissue disorders compr.stocking,knee,long,x-lrg Need for 10-15 millimeter mercury compression 2 ea 0RF M79.89 - Other specified soft tissue disorders tirzepatide (weight loss) (Zepbound) for 4 weeks 2.5 mg (0.5 mL) subcut QWEEK 4 weeks 2 mL 0RF E66.813 - Obesity, class 3, G47.33 - Obstructive sleep apnea (adult) (pediatric) tirzepatide (weight loss) (Zepbound) for 4 weeks 2.5 mg (0.5 mL) subcut QWEEK 2 mL 0RF 4 weeks E66.813 - Obesity, class 3, G47.33 - Obstructive sleep apnea (adult) (pediatric)
[2025-06-03 15:01] VITALS: BP 142/94; PULSE 86; TEMP 36.3; O2SAT 96; BMI 56.4
== END 2025-06-03 15:35 | disposition home or self-care (01) ==
LOC: HO.HMCH 14:56
PROVIDERS: PCP Physician Assistant; Visit Provider Physician Assistant
DX: Z00.00 Encounter for general adult medical examination without abnormal findings (principal); M79.89 Other specified soft tissue disorders; E66.813 Obesity, class 3; Z68.43 Body mass index [BMI] 50.0-59.9, adult; G47.33 Obstructive sleep apnea (adult) (pediatric); I10 Essential (primary) hypertension; E78.00 Pure hypercholesterolemia, unspecified

== ENCOUNTER → 2025-06-03 14:56 | Outpatient (BNVA) | payer OTHER, SELFPAY | PROVIDERS: PCP Physician Assistant; Visit Provider Physician Assistant | DX: Z00.00 Encounter for general adult medical examination without abnormal findings (principal); E66.813 Obesity, class 3; I10 Essential (primary) hypertension; E78.00 Pure hypercholesterolemia, unspecified; M79.89 Other specified soft tissue disorders; G47.33 Obstructive sleep apnea (adult) (pediatric); Z68.43 Body mass index [BMI] 50.0-59.9, adult | CPT/HCPCS: 96127; 99396 ==

== ENCOUNTER 2025-06-03 15:51 | Outpatient (REF) | payer OTHER, SELFPAY ==
--- NOTE | ~2025-06-03 | US_ITS ---
EXAMINATION: US TRIPLEX LOWER EXTREMITY, RIGHT CLINICAL INFORMATION: Right lower extremity edema. COMPARISON: None available. TECHNIQUE: Color-flow triplex imaging with spectral analysis and compression Doppler were performed on the right lower extremity. FINDINGS: Respiratory variation, normal compression and augmented flow are noted throughout the right lower extremity. The visualized common femoral vein, superficial femoral vein, profunda femoral vein, popliteal vein and midcalf venous segments show no evidence of deep venous thrombosis. The peroneal vein and posterior tibial vein could not be seen with certainty due to edema. There is no Melchor's cyst. US/US venous duplex LE RT IMPRESSION: No evidence of deep venous thrombosis involving the right lower extremity. Electronically signed by: Duke Marr MD 06/03/2025 04:28 PM EDT
== END 2025-06-03 15:52 | disposition home or self-care (01) ==
LOC: HO.US 15:51
PROVIDERS: PCP Physician Assistant; Visit Provider Physician Assistant
DX: M79.89 Other specified soft tissue disorders (principal); G47.33 Obstructive sleep apnea (adult) (pediatric)
CPT/HCPCS: 93971

== ENCOUNTER → 2025-06-03 15:58 | Outpatient (BNV) | payer OTHER, SELFPAY | PROVIDERS: PCP Physician Assistant; Visit Provider Radiology Diagnostic Radiology | DX: R22.41 Localized swelling, mass and lump, right lower limb (principal) | CPT/HCPCS: 93971 ==

== ENCOUNTER 2025-06-09 07:43 | Outpatient (REF) | payer OTHER, SELFPAY ==
[2025-06-09 08:14] LABS: Hematocrit 46.1 % (42.0-52.0); Hemoglobin 15.4 g/dl (14.0-18.0); Mean Corpuscular HGB Conc 33.4 g/dl (31.0-36.0); Mean Corpuscular Hemoglobin 30.9 pg (27.0-33.0); Mean Corpuscular Volume 92.4 fL (80.0-98.0); NRBC Abs Auto 0.000 X10*3/uL (0.0-0.012); NRBC Pct Auto 0.0 /100WBC (0.0-0.2); Platelet Count 161 X10*3/uL (160-400); Red Blood Count 4.99 X10*6/uL (4.60-5.80); White Blood Count 4.5 X10*3/uL (4.8-10.8)
[2025-06-09 08:41] LABS: Alanine Aminotransferase 37 U/L (0-40); Albumin Level 3.9 g/dL (3.5-5.0); Alkaline Phosphatase 84 U/L (39-117); Anion Gap 8 (12-20); Aspartate Amino Transferase 35 U/L (5-37); Blood Urea Nitrogen 15 mg/dL (9-16); Calcium 8.5 mg/dL (8.4-10.2); Carbon Dioxide 27 mmol/L (22-29); Chloride 109 mmol/L (96-108); Cholesterol 190 mg/dL (<200); Estimated Glomerular Filt Rate > 60; HDL Cholesterol 35 mg/dL (>40); Potassium 4.1 mmol/L (3.3-5.1); Sodium 140 mmol/L (135-145); Total Protein 7.0 g/dL (6.5-8.0); Triglycerides 329 mg/dL (<150)
[2025-06-09 11:27] LABS: Microalbum/Creatinine Ratio Ur 17.3 ug/mg cr (<30)
== END 2025-06-09 07:44 | disposition home or self-care (01) ==
LOC: HO.LAB 07:43
PROVIDERS: PCP Physician Assistant; Visit Provider Physician Assistant
DX: Z12.5 Encounter for screening for malignant neoplasm of prostate (principal); I10 Essential (primary) hypertension; E78.00 Pure hypercholesterolemia, unspecified
CPT/HCPCS: 36415; 80053; 80061; 82043; 82570; 84153; 85027

== ENCOUNTER 2025-08-04 13:42 | Outpatient (AMB) | payer OTHER, SELFPAY ==
--- NOTE | 2025-08-04 13:52 | MHC.PC.OV ---
Vital Signs 08/04/25 13:53 Height 6 ft 2.5 in Weight 433 lb 2 oz BMI 54.9 BP 136/78 Blood Pressure Location Lt brachial Position Sitting Pulse 74 Pulse Source Pulse Oximeter Temp 97.3 F Temp Source Temporal Artery Scan Pulse Oximetry (%) 92 Oxygen Delivery Method Room Air Intake Visit Reasons: weight check Intake Note: Patient is here to follow up on Weight check. Shoes Hand Sewer Required: No Bonding Molder: Not Required per policy Accompanied by: Self / Same As Patient Allergies egg (EGG) Allergy (Unknown, Verified 08/04/25 14:03) SWELLING NSAIDS (Non-Steroidal Anti-Inflamma (NSAIDS (NON-STEROIDAL ANTI-INFLAMMA) Allergy (Unknown, Verified 08/04/25 14:03) BLOOD IN STOOL Eggs Allergy (Unknown, Uncoded 08/04/25 14:03) anaphylaxis Medication List - Last Reconciled 08/04/25 by Marlon Sandhu PA-C bisacodyl (Dulcolax (bisacodyl)) 20 mg (4 x 5 mg) PO ONCE 1 day compr.stocking,knee,long,x-lrg Need for 10-15 millimeter mercury compression furosemide 20 mg PO DAILY 14 days Held on 07/14/25. Instructions: Doctor's Order polyethylene glycol 3350 (Miralax) 238 grams PO ONCE PRN 1 day Tobacco use date assessed: 08/04/25 Dental Screening Dental Screen Date: 06/03/25 HPI weight check HPI Details The patient is a 50-year-old male presenting with a follow-up for weight management and evaluation of multiple health concerns including hypertension, hyperglycemia, and respiratory symptoms. The patient has experienced weight loss, reducing from 445 pounds to 433 pounds, without significant changes in lifestyle or diet. 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 The patient has a history of hypertension, with recent blood pressure readings showing improvement from 142/94 mmHg to 136/78 mmHg. Hyperglycemia was noted with a fasting blood sugar of 128 mg/dL, indicating a diabetic range. The patient is scheduled for further evaluation with an A1c test. The patient has hypertriglyceridemia, with levels previously at 414 mg/dL, now reduced to 329 mg/dL. Lifestyle modifications have contributed to this improvement, though levels remain above the normal range of 150 mg/dL. The patient reports left hand tendinitis, characterized by locking and swelling, particularly affecting his dominant hand. He has tried various treatments, including anti-inflammatory medications and therapy, but has declined cortisone injections due to previous adverse effects. The patient has a history of smoking for 30 years, having quit four years ago. He reports respiratory symptoms, including crackles and wheezes, and is being evaluated for COPD. A chest x-ray and pulmonary function test have been ordered to assess lung function. The patient has a history of colon polyps, with seven polyps removed at age 31. He has been advised to undergo a colonoscopy due to the potential for precancerous changes. [facility] Medical History (Updated 08/04/25 @ 14:25 by Marlon Sandhu PA-C) Marijuana smoker Scrotal pain Hypercholesteremia Hypertension Surgical History History of umbilical hernia repair History of esophagogastroduodenoscopy (EGD) Hx of colonoscopy H/O right knee surgery Hx of cholecystectomy (08/24/23) Family History Mother No problems noted. Father Hypertension Diabetes Myocardial infarction Sister Hypertension Diabetes Brother Diabetes Hypertension Maternal Aunt Colon cancer Maternal Aunt Colon cancer Social History Household Members: Spouse Housing: House Alcohol intake: former Patient Tobacco Use Status: Never used Tobacco e-Cigarette/Vaping Use: Never Used Second Hand Smoke Exposure: No Substance Use Type: Marijuana service: No Current occupational status: unemployed and disabled Cognitive needs: No Hearing needs: No Vision needs: Yes Questionnaire Thrive Questionnaire Date Thrive assessed: 07/28/25 I am a: Patient What is your living situation today?: I have a steady place to live Within the past 12 months, did the food you bought not last and you didn't have the money to get more?: I choose not to answer this question Within the past 12 months, did you worry whether your food would run out before you got money to buy more?: I choose not to answer this question Do you have trouble paying for medicines?: No Do you have trouble getting transportation to medical appointments?: No Do you have trouble paying your heating and electricity bill?: I choose not to answer this question Do you have trouble taking care of your child, family member or friend?: No Do you have trouble with day-to-day activities such as bathing, preparing meals, shopping, managing finances, etc.?: I choose not to answer this question Are you currently unemployed and looking for a job?: Yes Please select the resources that you would like help with: None THRIVE Score: 0 DEANN-7 AMB Questionnaire DEANN-7 Date DEANN - 7 assessed: 06/03/25 Source: Developed by Drs. Simon Yun, Iris Levy, Julio Tom and colleagues, with an educational declan from [employer]. Review of Systems Const Denies headache(s) Eyes Denies loss of vision ENT Denies vertigo, Denies dizziness, Denies headache(s) and Denies sore throat Card Denies chest pain, Denies leg edema and Denies lightheadedness Resp Reports cough, Denies hemoptysis and Reports wheezing GI Denies abdominal pain, Denies melena, Denies constipation, Denies diarrhea and Denies vomiting Denies dysuria, Denies urinary frequency and Denies urinary urgency Musc Denies arthralgias, Denies joint swelling, Denies numbness and Denies tingling Neuro Denies Abnormal speech present, Denies behavioral changes, Denies vertigo, Denies dizziness, Denies headache(s), Denies loss of vision, Denies memory loss, Denies numbness and Denies tingling Psych Denies anxiety, Denies behavioral changes, Denies depression, Denies memory loss and Denies panic attacks Edouard/Lymph Denies easy bleeding and Denies easy bruising Aller/Immun Reports wheezing Physical exam (Primary Care) Vital Signs: Last Vital Signs Temp 97.3 F 08/04/25 13:53 Pulse 74 08/04/25 13:53 BP 136/78 08/04/25 13:53 Pulse Ox 92 08/04/25 13:53 Oxygen Delivery Method Room Air 08/04/25 13:53 BMI result Body Mass Index 54.9 BMI Assessment/Plan discussion: High BMI High, discussed plan: lifestyle, weight reduction, dietary and physical activity Tobacco/Smoking Status: Tobacco use Status Tobacco use date assessed 08/04/25 08/04/25 13:58 Patient Tobacco Use Status Never used Tobacco 08/04/25 13:58 e-Cigarette/Vaping Use Never Used 08/04/25 13:58 Thrive Assessment: Date of Thrive Assessment Date Thrive assessed 07/28/25 08/04/25 13:58 Const Other: Obese General: healthy appearing, no acute distress, alert and awake Nutritional Appearance: well nourished Orientation/consciousness: oriented to person, oriented to place and oriented to time HENMT Ears: TM's normal bilaterally General nose exam: Normal nasal mucous membranes and turbinates present Eyes Conjunctivae: conjunctivae normal Sclerae: sclerae normal Pupils: Equal, round and reactive pupils present Neck Neck: Yes no lymphadenopathy and Yes no JVD Thyroid: Thyroid normal Carotids: no bruits Resp Other: BILATERAL WHEEZE AND RALES Effort & Inspection: normal respiratory effort and not tachypneic Auscultation: no crackles, rales, no rhonchi and wheezes Cardio Rate: regular rate Rhythm: regular rhythm Heart sounds: no murmurs and normal S1 and S2 GI Palpation (GI): Soft to palpation, nontender, no hepatomegaly and no splenomegaly Auscultation: normal bowel sounds Skin General skin exam: no rashes or lesions noted and dry skin Neuro General: oriented to person, oriented to place and oriented to time Cranial nerves: Yes Equal, round and reactive pupils present Speech: No Abnormal speech present Gait exam (Neuro): Normal gait present Motor exam (neuro): no tremor noted Extrem Right upper extremity: full ROM Left upper extremity: full ROM Right lower extremity: full ROM; no edema Left lower extremity: full ROM; no edema Psych Mental Status: mental status grossly normal Speech and movement: Normal speech and movement present Affect: normal affect Attitude: cooperative Thought process: Normal thought process present Coding Level of Care Code Est Pt Level 4 (70877) Diagnoses Right leg swelling M79.89 Class 3 obesity E66.813 KAMILLA (obstructive sleep apnea) G47.33 Primary hypertension I10 Hypertension type: primary hypertension Hypercholesteremia E78.00 Elevated fasting blood sugar R73.01 Hx of colonoscopy Z98.890 Left wrist tendinitis M77.8 Subacute cough R05.2 Cough type: subacute Former smoker Z87.891 Simple chronic bronchitis J41.0 COPD type: chronic bronchitis Chronic bronchitis type: simple Assessment & Plan Assessment & Plan (1) Right leg swelling: Code(s): M79.89 - Other specified soft tissue disorders Category: Medical Plan: Patient with chronic right lower extremity swelling, will send for ultrasound to evaluate for DVT as he does have a family history of blood clots. Has vascular evaluation tomorrow. 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 (2) Class 3 obesity: Code(s): E66.813 - Obesity, class 3 Category: Medical Plan: Has lost 10 lb since last office visit. Patient has had a hard time losing weight. He is willing to try injectable medication GLP 1 to help him lose weight. (3) KAMILLA (obstructive sleep apnea): Code(s): G47.33 - Obstructive sleep apnea (adult) (pediatric) Category: Medical Plan: Patient does report a personal history of obstructive sleep apnea and was using a CPAP machine for a short amount of time. He does admit to daytime somnolence, increase fatigue and reports of apneic episodes at night. He is willing to get obstructive sleep apnea. (4) Hypertension: Code(s): I10 - Essential (primary) hypertension Category: Medical Qualifiers: Hypertension type: primary hypertension Qualified Code(s): I10 - Essential (primary) hypertension Plan: Patient's blood pressure elevated today in office. He would like to work on lifestyle and dietary modifications before starting blood pressure medications. Goal blood pressure to be below 140/90 (5) Hypercholesteremia: Code(s): E78.00 - Pure hypercholesterolemia, unspecified Category: Medical Plan: Patient's most recent lipid panel done in 2022 showing elevated triglycerides at 414. Most recent lipid panel showing much improved triglycerides though still borderline high. He will continue working on dietary modifications. (6) Elevated fasting blood sugar: Code(s): R73.01 - Impaired fasting glucose Category: Medical Plan: Noted elevated fasting blood sugar 128, will check an A1c to evaluate for type 2 diabetes. (7) Hx of colonoscopy: Comment: Reportedly 7 polyps at age 31 he had never had follow-up colonoscopy Code(s): Z98.890 - Other specified postprocedural states Category: Surgical Plan: Patient promises to call gastroenterology for repeat colonoscopy. (8) Left wrist tendinitis: Code(s): M77.8 - Other enthesopathies, not elsewhere classified Category: Medical Plan: The patient reports tendinitis in the left hand, with treatment options including anti-inflammatory medications and occupational therapy. Cortisone injections have been declined due to previous adverse reactions. (9) Cough: Code(s): R05.9 - Cough, unspecified Category: Medical Qualifiers: Cough type: subacute Qualified Code(s): R05.2 - Subacute cough Plan: The patient is being evaluated for COPD, with a chest x-ray and pulmonary function test ordered. An inhaler has been prescribed to manage respiratory symptoms, and further assessment will guide treatment. (10) Former smoker: Code(s): Z87.891 - Personal history of nicotine dependence Category: Social Hx Plan: Former smoker, quit smoking 4 years ago. Has recently noted wheeze and chest congestion. Will send for chest x-ray to evaluate for pulmonary infiltrate (11) COPD (chronic obstructive pulmonary disease): Code(s): J44.9 - Chronic obstructive pulmonary disease, unspecified Category: Medical Qualifiers: COPD type: chronic bronchitis Chronic bronchitis type: simple Qualified Code(s): J41.0 - Simple chronic bronchitis Plan: As above, concerns here for COPD due to his long smoking history. Will supply patient with an albuterol inhaler for wheeze and shortness of breath. Orders: Orders PFT pulmonary function test Today J44.9 - Chronic obstructive pulmonary disease, unspecified, R05.9 - Cough, unspecified, Z87.891 - Personal history of nicotine dependence Comprehensive D Lo. Panel Fast Today E78.00 - Pure hypercholesterolemia, unspecified XR chest 2V Today R05.9 - Cough, unspecified Hemoglobin A1c Today R73.01 - Impaired fasting glucose Lipid Panel Today E78.00 - Pure hypercholesterolemia, unspecified Complete Blood Count no Diff Today E78.00 - Pure hypercholesterolemia, unspecified Medications: New albuterol sulfate 90 mcg/actuation (Ventolin HFA) 1 inh inhalation QID 8.5 grams 2RF 30 days J44.9 - Chronic obstructive pulmonary disease, unspecified diclofenac sodium 1% apply to single elbow, wrist or hand; for hand includes palm/fingers/back of hand 2 grams topical QID 100 grams 0RF 30 days M77.8 - Other enthesopathies, not elsewhere classified
[2025-08-04 13:53] VITALS: BP 136/78; PULSE 74; TEMP 36.3; O2SAT 92; BMI 54.9
--- OUTSIDE RECORDS SUMMARY | 2025-08-04 15:57 | XMS_ITS | Clinical Summary ---
Author Organization [facility] Address [address] [place] [id number] Phone Care Team Providers Care Can Closing Machine Operator Name Role Phone Unavailable Primary Care Provider Unavailabl e Allergies Active Allergy Reactions Criticality Noted Date Comments Ibuprofen 04/25/2023 Social History Tobacco Use Types Packs/Day Years Used Date Smoking Tobacco: Former Cigarettes Smokeless Tobacco: Never Tobacco Cessation:Counseling Given: Not Answered Alcohol Use Standard Drinks/Week Comments Not Currently 0 (1 standard drink = 0.6 oz pur e alcohol) Education Answer Date Recorded Are you interested in more education? Not on jana e 04/25/2023 Are you concerned about learning? Not on file 04/25/2023 No 04/25/2023 No 04/25/2023 Digital Access Answer Date Recorded No 04/25/2023 No 04/25/2023 Reliable internet access at home? Not on file 04/25/2023 Device with a working camera? Not on file Intimate Partner Violence Answer Date R ecorded Are you denied basic needs s uch as food, clothing, or medical care? No 04/25/2023 In the past 12 months have y ou been in a relationship with a person who hurts, threatens, or tries to control you? No 04/25/2023 Are you denied basic needs s uch as food, clothing, or medical care? No 04/25/2023 In the past 12 months have y ou been in a relationship with a person who hurts, threatens, or tries to control you? No 04/25/2023 Sex and Gender Information Value Date Recorded Sex Assigned at Not on file Legal Sex Male 6:36 PM EDT Gender Identity Not on file Sexual Orientation Not on file Last Filed Vital Signs Vital Sign Reading Time Taken Comments Blood Pressure 157/105 04/25/2023 7:04 PM EDT Pulse 75 04/25/2023 7:04 PM EDT Temperature 36.6 C (97.9 F) 04/25/2023 7:04 PM EDT Respiratory Rate 18 04/25/2023 7:04 PM EDT Oxygen Saturation 97% 04/25/2023 7:04 PM EDT Inhaled Oxygen Concentration - - Weight 184.6 kg (407 lb) 04/25/2023 7:04 PM EDT Height - - Body Mass Index - - Plan of Treatment Health Maintenance Due Date Last Done Comments Adult Td,Tdap Booster 1977 LIPID PANEL 1977 DEPRESSION SCREENING 1989 SMOKING Hx and SMOKELESS TOB ACCO SCREENING 1990 HEPATITIS C SCREENING 1995 HIV ONE-TIME SCREENING (18-6 5 YEARS) 1995 COLOGUARD 2022 COLONOSCOPY 2022 COLORECTAL CANCER SCREENING 2022 FIT TEST 2022 FOBT 2022 SIGMOIDOSCOPY 2022 VIRTUAL COLONOSCOPY 2022 INFLUENZA VACCINE (#1) 2025 COVID-19 VACCINE ( - 2023-2 5 season) 2025 HEPATITIS A VACCINES Aged Out No long er eligible based on patient's age to complete this topic HIB VACCINES Aged Out No longer eligi ble based on patient's age to complete this topic MENINGOCOCCAL VACCINES (ACWY) Aged Out No longer eligible based on patient's age to complete this topic MENINGOCOCCAL VACCINES (B) Aged Out N o longer eligible based on patient's age to complete this topic PNEUMOCOCCAL VACCINES (0-49 years) Aged Out No longer eligible based on patient's age to complete this topic Medical Devices Not on file Insurance [facility] Additional Source Comments The information contained in this document represents components of the legal health record. It is not the complete legal health record.[facility]
== END 2025-08-04 14:27 | disposition home or self-care (01) ==
PROVIDERS: PCP Physician Assistant; Visit Provider Physician Assistant
DX: J41.0 Simple chronic bronchitis (principal); Z87.891 Personal history of nicotine dependence; E66.813 Obesity, class 3; Z68.43 Body mass index [BMI] 50.0-59.9, adult; M79.89 Other specified soft tissue disorders; G47.33 Obstructive sleep apnea (adult) (pediatric); I10 Essential (primary) hypertension; E78.00 Pure hypercholesterolemia, unspecified; R73.01 Impaired fasting glucose; Z98.890 Other specified postprocedural states; M77.8 Other enthesopathies, not elsewhere classified

== ENCOUNTER → 2025-08-04 13:42 | Outpatient (BNVA) | payer OTHER, SELFPAY | PROVIDERS: PCP Physician Assistant; Visit Provider Physician Assistant | DX: I10 Essential (primary) hypertension (principal); R73.9 Hyperglycemia, unspecified; E78.1 Pure hyperglyceridemia; M77.8 Other enthesopathies, not elsewhere classified; Z87.891 Personal history of nicotine dependence; M79.89 Other specified soft tissue disorders; E66.813 Obesity, class 3; G47.33 Obstructive sleep apnea (adult) (pediatric); R73.01 Impaired fasting glucose; E78.00 Pure hypercholesterolemia, unspecified; J41.0 Simple chronic bronchitis; Z86.0100 Personal history of colon polyps, unspecified | CPT/HCPCS: 99212 ==

== ENCOUNTER 2025-08-11 07:43 | Outpatient (REF) | payer OTHER, SELFPAY ==
--- NOTE | ~2025-08-11 | XR_ITS ---
EXAMINATION: XR CHEST 2 VIEWS HISTORY: R05.9 - Cough, unspecified COMPARISON: Comparison is made with the prior examination dated 06/05/2019. FINDINGS: PA and lateral views of the chest are submitted. The lungs are expanded and clear. There is no pleural effusion, pneumothorax, or pulmonary vascular congestion. The heart is normal in size. There is mild degenerative disc disease of the spine. XR/XR chest 2V IMPRESSION: No acute cardiopulmonary abnormality. Electronically signed by: Simon Olivares MD 08/11/2025 08:08 AM EDT
--- OUTSIDE RECORDS SUMMARY | 2025-08-11 07:47 | XMS_ITS | Clinical Summary ---
Author Organization [facility] Address [address] [place] [phone] Phone Care Team Providers Care System Administrator Name Role Phone Unavailable Primary Care Provider [...] topic Medical Devices Not on file Insurance [facility] Additional Source Comments The information contained in this document represents components of the legal health record. It is not the complete legal health record.[facility]
[2025-08-11 08:50] LABS: Hematocrit 46.1 % (42.0-52.0); Hemoglobin 15.7 g/dl (14.0-18.0); Mean Corpuscular HGB Conc 34.1 g/dl (31.0-36.0); Mean Corpuscular Hemoglobin 31.0 pg (27.0-33.0); Mean Corpuscular Volume 91.1 fL (80.0-98.0); NRBC Abs Auto 0.000 X10*3/uL (0.0-0.012); NRBC Pct Auto 0.0 /100WBC (0.0-0.2); Platelet Count 207 X10*3/uL (160-400); Red Blood Count 5.06 X10*6/uL (4.60-5.80); White Blood Count 5.3 X10*3/uL (4.8-10.8)
[2025-08-11 09:28] LABS: Alanine Aminotransferase 36 U/L (0-40); Albumin Level 4.0 g/dL (3.5-5.0); Alkaline Phosphatase 102 U/L (39-117); Anion Gap 10 (12-20); Aspartate Amino Transferase 36 U/L (5-37); Blood Urea Nitrogen 12 mg/dL (9-16); Calcium 8.5 mg/dL (8.4-10.2); Carbon Dioxide 27 mmol/L (22-29); Chloride 107 mmol/L (96-108); Cholesterol 179 mg/dL (<200); Estimated Glomerular Filt Rate > 60; HDL Cholesterol 30 mg/dL (>40); Potassium 4.2 mmol/L (3.3-5.1); Sodium 140 mmol/L (135-145); Total Protein 7.4 g/dL (6.5-8.0); Triglycerides 316 mg/dL (<150)
[2025-08-11 09:37] LABS: Hemoglobin A1C 216.0810 umol/L; Total Hemoglobin (HGBA1C) 4093.6298 umol/L
== END 2025-08-11 07:44 | disposition home or self-care (01) ==
LOC: HO.LAB 07:43
PROVIDERS: Visit Provider Physician Assistant
DX: R73.01 Impaired fasting glucose (principal); R05.9 Cough, unspecified; E78.00 Pure hypercholesterolemia, unspecified
CPT/HCPCS: 36415; 71046; 80053; 80061; 83036; 85027

== ENCOUNTER → 2025-08-11 07:48 | Outpatient (BNV) | payer OTHER, SELFPAY | PROVIDERS: Visit Provider Radiology Diagnostic Radiology | DX: R05.9 Cough, unspecified (principal) | CPT/HCPCS: 71046 ==

== ENCOUNTER 2025-08-27 08:01 | Outpatient (AMB) | payer OTHER, SELFPAY ==
--- NOTE | 2025-08-27 08:03 | A.OFFPC_ITS ---
Vital Signs 08/27/25 08:05 Height 6 ft 2.5 in Weight 435 lb BMI 55.1 BP 124/90 H Blood Pressure Location Lt brachial Position Sitting Pulse 70 Pulse Source Pulse Oximeter Temp 97.1 F Temp Source Temporal Artery Scan Pulse Oximetry (%) 94 Oxygen Delivery Method Room Air Intake Visit Reasons: Problem with his Leg Intake Note: Patient is here to follow up on Problem with right leg. Rn Or Lvn Required: No Embossed Or Impressed Lettering Painter: Not Required per policy Accompanied by: Self / Same As Patient Allergies egg (EGG) Allergy (Unknown, Verified 08/27/25 08:11) SWELLING NSAIDS (Non-Steroidal Anti-Inflamma (NSAIDS (NON-STEROIDAL ANTI-INFLAMMA) Allergy (Unknown, Verified 08/27/25 08:11) BLOOD IN STOOL Eggs Allergy (Unknown, Uncoded 08/27/25 08:11) anaphylaxis Medication List - Last Reconciled 08/27/25 by Marlon Sandhu PA-C albuterol sulfate 90 mcg/actuation (Ventolin HFA) 1 inh inhalation QID 30 days bisacodyl (Dulcolax (bisacodyl)) 20 mg (4 x 5 mg) PO ONCE 1 day compr.stocking,knee,long,x-lrg Need for 10-15 millimeter mercury compression diclofenac sodium 1% 2 grams topical QID 30 days furosemide 20 mg PO DAILY 14 days Held on 07/14/25. Instructions: Doctor's Order metformin 500 mg PO BID 30 days polyethylene glycol 3350 (Miralax) 238 grams PO ONCE PRN 1 day Tobacco use date assessed: 08/27/25 Dental Screening Dental Screen Date: 06/03/25 HPI Problem with his Leg HPI Details The patient is a 50-year-old male presenting for a follow-up visit. Patient has a past medical history significant for class 3 obesity, type 2 diabetes, hyperlipidemia and lower extremity lymphedema The patient has a history of hypertension, with recent blood pressure readings showing improvement from 142/94 mmHg to 136/78 mmHg. DMII: Was found to have new onset type 2 diabetes in July 2025. He was started on metformin though has not started this medication .. Lower extremity lymphedema: Patient reports he has an upcoming appointment with vascular, continues to have lower extremity bilateral lymphedema worse on the right side with hemosiderin staining. Did have an ultrasound of his lower right leg which did not show vascular issue or DVT. Hypertriglyceridemia: The patient has hypertriglyceridemia, with levels previously at 414 mg/dL, now reduced to 329 mg/dL. Lifestyle modifications have contributed to this improvement, though levels remain above the normal range of 150 mg/dL. Former smoker: The patient has a history of smoking for 30 years, having quit four years ago. He reports respiratory symptoms, including crackles and wheezes, and is being evaluated for COPD. HE has a pulmonary function test have been ordered to assess lung function. [facility] Medical History Marijuana smoker Scrotal pain Hypercholesteremia Hypertension Surgical History History of umbilical hernia repair History of esophagogastroduodenoscopy (EGD) Hx of colonoscopy H/O right knee surgery Hx of cholecystectomy (08/24/23) Family History Mother No problems noted. Father Hypertension Diabetes Myocardial infarction Sister Hypertension Diabetes Brother Diabetes Hypertension Maternal Aunt Colon cancer Maternal Aunt Colon cancer Social History Household Members: Spouse Housing: House Alcohol intake: former Patient Tobacco Use Status: Never used Tobacco e-Cigarette/Vaping Use: Never Used Second Hand Smoke Exposure: No Substance Use Type: Marijuana service: No Current occupational status: unemployed and disabled Cognitive needs: No Hearing needs: No Vision needs: Yes Questionnaire PHQ-9 Over the last 2 weeks, how often have you been bothered by any of the following problems? 1. Little interest or pleasure in doing things: not at all 2. Feeling down, depressed, or hopeless: not at all 3. Trouble falling or staying asleep, or sleeping too much: not at all 4. Feeling tired or having little energy: not at all 5. Poor appetite or overeating: not at all 6. Feeling bad about yourself - or that you are a failure or have let yourself or your family down: not at all 7. Trouble concentrating on things, such as reading the newspaper or watching television: several days 8. Moving or speaking so slowly that other people could have noticed. Or the opposite - being so fidgety or restless that you have been moving around a lot more than usual: several days 9. Thoughts that you would be better off or of hurting yourself in some way: not at all Total score: 2 Depression Screening Interpretation: Positive Depression Screening Follow-up: Existing condition Depression Screening Done: Yes 65446 - PHQ-9 Billing: Yes Source: Developed by Drs. Simon Yun, Julio Tolliver and colleagues, with an educational declan from [employer]. Thrive Questionnaire Date Thrive assessed: 07/28/25 Do you have trouble paying your heating and electricity bill?: I choose not to answer this question Do you have trouble taking care of your child, family member or friend?: No Do you have trouble with day-to-day activities such as bathing, preparing meals, shopping, managing finances, etc.?: I choose not to answer this question Are you currently unemployed and looking for a job?: Yes Are you interested in more education?: No Please select the resources that you would like help with: None Currently or been in a relationship where the following occur: No concerns reported THRIVE Score: 0 DEANN-7 AMB Questionnaire DEANN-7 Date DEANN - 7 assessed: 06/03/25 Feeling nervous, anxious, or on edge: 0 = Not at all Not being able to stop or control worryin = Not at all Worrying too much about different things: 0 = Not at all Trouble relaxin = Not at all Being so restless that it is hard to sit still: 0 = Not at all Becoming easily annoyed or irritable: 0 = Not at all Feeling afraid as if something awful might happen: 0 = Not at all Total DEANN-7 score (0-4 normal; 5-9 mild; 10-14 moderate; 15-21 severe): 0 Source: Developed by Drs. Simon Yun, Julio Tolliver and colleagues, with an educational declan from [employer]. DEANN-7 Assessment Billing DEANN-7 Assessment Tool: DEANN-7 Assessment 98140 Review of Systems Const Denies headache(s) Eyes Denies loss of vision ENT Denies vertigo, Denies dizziness, Denies headache(s) and Denies sore throat Card Denies chest pain, Denies leg edema and Denies lightheadedness Resp Denies cough, Denies hemoptysis and Denies wheezing GI Denies abdominal pain, Denies melena, Denies constipation, Denies diarrhea and Denies vomiting Denies dysuria, Denies urinary frequency and Denies urinary urgency Musc Denies arthralgias, Denies joint swelling, Denies numbness and Denies tingling Neuro Denies Abnormal speech present, Denies behavioral changes, Denies vertigo, Denies dizziness, Denies headache(s), Denies loss of vision, Denies memory loss, Denies numbness and Denies tingling Psych Denies anxiety, Denies behavioral changes, Denies depression, Denies memory loss and Denies panic attacks Edouard/Lymph Denies easy bleeding and Denies easy bruising Aller/Immun Denies wheezing Physical exam (Primary Care) BMI Assessment/Plan discussion: High BMI High, discussed plan: lifestyle, weight reduction, dietary and physical activity Tobacco/Smoking Status: Tobacco use Status Tobacco use date assessed 08/04/25 08/04/25 13:58 Patient Tobacco Use Status Never used Tobacco 08/04/25 13:58 e-Cigarette/Vaping Use Never Used 08/04/25 13:58 Depression Screening Interpretation: Positive Depression Screening Follow-up: Existing condition Thrive Assessment: Date of Thrive Assessment Date Thrive assessed 07/28/25 08/04/25 13:58 Currently or been in a relationship where the following occur: No concerns reported Const General: healthy appearing, no acute distress, alert and awake Nutritional Appearance: well nourished Orientation/consciousness: oriented to person, oriented to place and oriented to time HENMT Ears: TM's normal bilaterally General nose exam: Normal nasal mucous membranes and turbinates present Eyes Conjunctivae: conjunctivae normal Sclerae: sclerae normal Pupils: Equal, round and reactive pupils present Neck Neck: Yes no lymphadenopathy and Yes no JVD Thyroid: Thyroid normal Carotids: no bruits Resp Effort & Inspection: normal respiratory effort and not tachypneic Auscultation: no crackles, no rales, no rhonchi and no wheezes Cardio Rate: regular rate Rhythm: regular rhythm Heart sounds: no murmurs and normal S1 and S2 GI Palpation (GI): Soft to palpation, nontender, no hepatomegaly and no splenomegaly Auscultation: normal bowel sounds Skin General skin exam: no rashes or lesions noted and dry skin Neuro General: oriented to person, oriented to place and oriented to time Cranial nerves: Yes Equal, round and reactive pupils present Speech: No Abnormal speech present Gait exam (Neuro): Normal gait present Motor exam (neuro): no tremor noted Extrem Other: RIGHT LOWER EXTREMITY: NOTED LYMPHEDEMA WITH MEDIAL TIBIAL REGION HEMOSIDERIN STAINING Right upper extremity: full ROM Left upper extremity: full ROM Right lower extremity: full ROM and edema Left lower extremity: full ROM and edema Psych Mental Status: mental status grossly normal Speech and movement: Normal speech and movement present Affect: normal affect Attitude: cooperative Thought process: Normal thought process present Coding Level of Care Code Est Pt Level 4 (33931) Diagnoses Type 2 diabetes mellitus with hyperglycemia, without long-term current use of insulin E11.65 Diabetes mellitus intermediate insulin use: without termite technician use Diabetes mellitus complication status: with hyperglycemia Class 3 obesity E66.813 KAMILLA (obstructive sleep apnea) G47.33 Primary hypertension I10 Hypertension type: primary hypertension Hypercholesteremia E78.00 Former smoker Z87.891 Simple chronic bronchitis J41.0 COPD type: chronic bronchitis Chronic bronchitis type: simple Additional Codes PHQ-9 - 89674 - PHQ-9 Billing: Yes ([id number]) DEANN-7 Assessment Billing - DEANN-7 Assessment Tool: DEANN-7 Assessment 63904 ([id number]) Assessment & Plan Assessment & Plan (1) DMII (diabetes mellitus, type 2): Code(s): E11.9 - Type 2 diabetes mellitus without complications Category: Medical Qualifiers: Diabetes mellitus intermediate insulin use: without intermediate use Diabetes mellitus complication status: with hyperglycemia Qualified Code(s): E11.65 - Type 2 diabetes mellitus with hyperglycemia Plan: Patient's most recent A1c is 7. We have prescribed him metformin though has not been taking this medication. Will also try GLP 1 to help him with weight loss and glycemic control. Goal A1c is to be below 7.0 (2) Class 3 obesity: Code(s): E66.813 - Obesity, class 3 Category: Medical Plan: Patient does understand his BMI is over 50 and will continue working on being more physically active and adapting to better eating habits to reduce his weight Patient has had a hard time losing weight. Will try for Mounjaro- GLP 1 to help with weight loss (3) KAMILLA (obstructive sleep apnea): Code(s): G47.33 - Obstructive sleep apnea (adult) (pediatric) Category: Medical Plan: Patient does report a personal history of obstructive sleep apnea and was using a CPAP machine for a short amount of time. He does admit to daytime somnolence, increase fatigue and reports of apneic episodes at night. He is willing to get a sleep study (4) Hypertension: Code(s): I10 - Essential (primary) hypertension Category: Medical Qualifiers: Hypertension type: primary hypertension Qualified Code(s): I10 - Essential (primary) hypertension Plan: Patient's blood pressure slightly elevated today in office. He would like to w ork on lifestyle and dietary modifications before starting blood pressure medications. Goal blood pressure to be below 140/90 (5) Hypercholesteremia: Code(s): E78.00 - Pure hypercholesterolemia, unspecified Category: Medical Plan: Patient's most recent lipid panel done in 2022 showing elevated triglycerides at 414. Most recent lipid panel showing much improved triglycerides though still borderline high. He will continue working on dietary modifications. (6) Former smoker: Code(s): Z87.891 - Personal history of nicotine dependence Category: Social Hx Plan: Former smoker, quit smoking 4 years ago. He has been started on a albuterol inhaler which has helped clear his congestion. Chest x-ray was normal. Has upcoming appointment for a pulmonary function test to evaluate for formal diagnosis of COPD (7) COPD (chronic obstructive pulmonary disease): Code(s): J44.9 - Chronic obstructive pulmonary disease, unspecified Category: Medical Qualifiers: COPD type: chronic bronchitis Chronic bronchitis type: simple Qualified Code(s): J41.0 - Simple chronic bronchitis Plan: As above, concerns here for COPD due to his long smoking history. Orders: Orders RT home sleep study Today G47.33 - Obstructive sleep apnea (adult) (pediatric) Lipid Panel Today E78.00 - Pure hypercholesterolemia, unspecified Comprehensive [place]. Panel Fast Today E11.9 - Type 2 diabetes mellitus without complications Complete Blood Count no Diff Today E11.9 - Type 2 diabetes mellitus without complications Microalbumin, Random (w Creat) Today E11.9 - Type 2 diabetes mellitus without complications Medications: New tirzepatide (Mounjaro) for 4 weeks 2.5 mg (0.5 mL) subcut QWEEK 2 mL 0RF 4 weeks E11.9 - Type 2 diabetes mellitus without complications
[2025-08-27 08:05] VITALS: BP 124/90; PULSE 70; TEMP 36.2; O2SAT 94; BMI 55.1
== END 2025-08-27 08:27 | disposition home or self-care (01) ==
LOC: HO.HMCH 08:02
PROVIDERS: PCP Physician Assistant; Visit Provider Physician Assistant
DX: E11.65 Type 2 diabetes mellitus with hyperglycemia (principal); E66.813 Obesity, class 3; J41.0 Simple chronic bronchitis; Z68.43 Body mass index [BMI] 50.0-59.9, adult; G47.33 Obstructive sleep apnea (adult) (pediatric); I10 Essential (primary) hypertension; E78.00 Pure hypercholesterolemia, unspecified; Z87.891 Personal history of nicotine dependence

== ENCOUNTER → 2025-08-27 08:01 | Outpatient (BNVA) | payer OTHER, SELFPAY | PROVIDERS: PCP Physician Assistant; Visit Provider Physician Assistant | DX: E11.65 Type 2 diabetes mellitus with hyperglycemia (principal); E66.813 Obesity, class 3; G47.33 Obstructive sleep apnea (adult) (pediatric); I10 Essential (primary) hypertension; E78.00 Pure hypercholesterolemia, unspecified; Z87.891 Personal history of nicotine dependence; Z68.43 Body mass index [BMI] 50.0-59.9, adult | CPT/HCPCS: 96127; 99212 ==